=== PATIENT | female | born 1965 ===

== ENCOUNTER 2023-02-04 19:24 | Emergency (ER) | payer SELFPAY ==
[~2023-02-04] VITALS: Ht 167.6 cm; Wt 89.5 kg
[2023-02-04 19:33] VITALS: BP 155/73; PULSE 91; RESP 14; TEMP 98.6
== END 2023-02-04 20:57 | disposition left against medical advice (07) ==
LOC: EMS 19:36
DX: M79.604 Pain in right leg (principal); Z53.21 Procedure and treatment not carried out due to patient leaving prior to being seen by health care provider
CPT/HCPCS: 99281; Z7502